=== PATIENT | male | born 1960 | race Caucasian/White ===

== ENCOUNTER → 2019-07-05 12:49 | Outpatient (CLI) | payer MEDICARE, BC ==
--- NOTE | ~2019-07-05 | HEMODYNAMI ---
PATIENT:MAITE BLANCA MEDICAL RECORD: [id number] : 60 LOCATION:[facility] ADMISSION DATE: 07/05/19 Generatedon:07/05/201915:43 Patient name: MAITE BLANCA Patient #: [id number] SSN: : 1 1960 Date of study: 07/05/2019 Page: Of Hemodynamic Procedure Report Patient Data Patient Demographics Procedure consent was obtained First Name: MAITE Gender: Male Last Name: EVANGELIST : 1960 Middle Initial: ALISON Age: 58 year(s) Patient #: [id number] Race: Unknown Additional ID: [id number] Contact details [address]: [address] [place] [address] State: [place] City: [place] Zip code: [address] Past Medical History Allergies Allergen Reaction Date Comments Reported Other allergy 07/05/2019 morphine Admission Admission Data Admission Date: 07/05/2019 Admission Time: 12:49 Procedure Procedure Types Cath Procedure Peripheral Cath Diagnostic Procedure Miscellaneous Peritoneogram Procedure Description Procedure Date Procedure Date: 07/05/2019 Procedure Start Time: 15:31 Procedure End Time: 15:42 Procedure Staff Name Function José Miguel Wadsworth MD Performing Physician PAUL ARGUELLES RT Monitor Courtney Roberts RN Nurse Keisha Crawley RN Nurse Kobi Nayak RT Scrub Procedure Data Cath Procedure Fluoroscopy Diagnostic fluoroscopy Total fluoroscopy Time: 3.1 time: 3.1 min min Diagnostic fluoroscopy Total fluoroscopy dose: 102 dose: 102 mGy mGy Contrast Material Contrast Material Type Amount (ml) Isovue 300 20 Hemodynamics Rest Pre Cath Intra NCS Post Cath Procedure Log Time Note 15:13:59 Kobi Nayak RT (R) (CV) sent for patient. Start room use. 15:14:01 Time tracking: Regular hours (M-F 7:00 - 5:00) 15:14:07 Plan of Care:Hemodynamics will remain stable., Cardiac rhythm will remain stable., Comfort level will be maintained., Respiratory function will remain adequate., Patient/ family verbilizes understanding of procedure., Procedure tolerated without complication., Recovers from procedure without complications.. 15:14:15 Patient received from Outpatients to IR Alert and oriented. Tansferred to table in Supine position. 15:14:18 Signed procedure consent form obtained from patient. 15:14:20 Warm blankets applied, and sonya hugger turned on for patient comfort. 15:14:22 Correct patient and procedure confirmed by team. 15:14:23 ECG and BP/O2 sat monitors applied to patient. 15:14:25 - 15:14:26 - 15:14:32 H&P Date Dictated: 07/05/2019 H&P Addendum completed by physician on day of procedure. (MUST COMPLETE FOR ALL OUTPATIENTS). 15:14:34 Pre-procedure instructions explained to patient. 15:14:35 Pre-op teaching completed and patient verbalized understanding. 15:14:45 Patient NPO since Midnight. 15:15:21 Patient allergic to Other allergymorphine 15:15:25 Is the patient allergic to Iodine/contrast media? No. 15:15:39 Is patient on blood thinner? Yes. Last Dose 07/04/2019 15:16:18 Patient diabetic? Yes. 15:16:19 If diabetic: On Metformin? No 15:16:21 - 15:17:47 Previous problem with sedation/anesthesia? No ? 15:17:50 Snore? Yes 15:17:51 Sleep apnea? Yes 15:17:53 Deviated septum? No 15:17:54 Opens mouth fully? Yes 15:17:55 Sticks out tongue? Yes 15:20:29 Dentures? No ? 15:20:30 - 15:21:05 Right abdomen area was prepped with chlora-prep and draped in sterile fashion 15:21:08 Alarms reviewed by RMaira N. 15:21:09 Sharps counted by scrub and verified by RMairaN. 15:27:31 Physician arrived 15:30:21 --------ALL STOP TIME OUT------ 15:30:33 Final Timeout: patient, procedure, and site verified with staff and physician. All members of the team are in agreement. 15:30:37 Right abdomen site verified by team. 15:30:41 Fire Safety Assessment: A--An alcohol-based skin anteseptic being used preoperatively., C--Open oxygen or nitrous oxide is being used. 15:30:52 Use device set IR Diagnostic 15:30:53 Bag Decanter (2002S) opened to sterile field. 15:30:54 Sterile Angiographic Pack opened to sterile field. 15:30:55 Tegaderm 4 x 4 ([id number]) opened to sterile field. 15:31:00 Procedure started. 15:31:00 Full Disclosure recording started 15:32:58 GLIDE WIRE Angled Super Stiff 180cm ([id number]) opened to sterile field. 15:38:12 Procedure ended.(Physican Out) 15:38:34 Fluoroscopy time 03.10 minutes. 15:38:37 Fluoroscopy dose: 102 mGy 15:38:37 Flurop Dose total: 102 15:38:42 Contrast amount:Isovue 300 20ml. 15:38:45 Sharps counted by scrub and verified by R.N. 15:42:10 Post procedure instruction explained to patient.Patient verbalizes understanding. 15:42:12 Procedure and supply charges have been captured, reviewed, submitted an d are correct. 15:42:44 Procedure ended. 15:42:44 Full Disclosure recording stopped Device Usage Item Name Manufacture Quantity Catalog Hospital Part Current Minimal Lot# / Number Charge Number Stock Stock Serial# Code Bag Decanter Microtek 1 [id number] 5 () [employer] Sterile Cardinal 1 [id number] 5 Angiographic Health Pack Tegaderm 4 x 3M 1 [id number] 5 4 ([id number]) GLIDE WIRE Terumo 1 [id number] 5 Angled Super Stiff 180cm ([id number]) Signature Audit [place] Stage Time Signature Unsigned Intra-Procedure 07/05/2019 PAUL ARGUELLES RT 3:43:47 PM (R) Signatures Monitor : PAUL ARGUELLES RT Signature : Date : Time : [id number] [place] [address]
== END | disposition home or self-care (01) ==
LOC: D.SP 12:49 → D.RAD 15:00
PROVIDERS: ATTEND Surgery
DX: T82.49XA Other complication of vascular dialysis catheter, initial encounter (principal)